=== PATIENT | male | born 1960 | race Caucasian/White ===

== ENCOUNTER 2020-09-03 16:21 | Emergency (ER) | payer OTHER ==
[~2020-09-03] VITALS: Ht 182.9 cm; Wt 100.0 kg
[2020-09-03 16:28] VITALS: BP 142/74
[2020-09-03] MEDS ORDERED: PREDNISONE 20MG TABLET PO ONE (17:00)
== END 2020-09-03 19:02 | disposition home or self-care (01) ==
LOC: ER 16:21
DX: U07.1 COVID-19 (principal); F11.10 Opioid abuse, uncomplicated; I10 Essential (primary) hypertension; Z85.038 Personal history of other malignant neoplasm of large intestine
CPT/HCPCS: 71045; 87635; 99283; J7512